=== PATIENT | female | born 1985 | race Caucasian/White ===

== ENCOUNTER 2016-10-10 11:09 | Emergency (ER) | payer MEDICAID ==
[2016-10-10 11:13] VITALS: BP 103/69; PULSE 76; RESP 16; TEMP 98.1; O2SAT 99
--- NOTE | 2016-10-10 11:57 | C.PDOC ---
History Of Present Illness 31 yr old female presents to the ER with complaints of left lower back pain after lifting a heavy box at work 2 days ago. Patient states she tried ibuprofen 600mg yesterday with moderate relief and again today at 430 am with no relief. Patient denies nausea, vomiting, abdominal pain, diarrhea, dysuria, incontinence, hematuria, weakness or numbness.denies tingling. Time Seen by Provider: 10/10/16 11:28 Chief Complaint (Nursing): Back Pain History Per: Patient History/Exam Limitations: no limitations Onset/Duration Of Symptoms: Days (2) Current Symptoms Are (Timing): Still Present Past Medical History Reviewed: Historical Data, Nursing Documentation, Vital Signs Vital Signs: Last Vital Signs Temp 98.1 F 10/10/16 11:12 Pulse 76 10/10/16 11:12 Resp 16 10/10/16 11:12 BP 103/69 10/10/16 11:12 Pulse Ox 99 10/10/16 12:13 - Medical History PMH: Anemia, Asthma Surgical History: Cholecystectomy Family History: States: No Known Family Hx - Social History Hx Tobacco Use: Yes Hx Alcohol Use: No Hx Substance Use: No - Immunization History Hx Tetanus Toxoid Vaccination: No Hx Influenza Vaccination: No Hx Pneumococcal Vaccination: No Review Of Systems Except As Marked, All Systems Reviewed And Found Negative. Gastrointestinal: Negative for: Nausea, Vomiting, Abdominal Pain, Diarrhea Genitourinary: Negative for: Dysuria, Incontinence, Hematuria Musculoskeletal: Positive for: Back Pain (Left lower lumbar ) Neurological: Negative for: Weakness, Numbness Physical Exam - Physical Exam Appears: Well, Non-toxic, No Acute Distress Skin: Warm, Dry, No Rash Head: Atraumatic, Normacephalic Oral Mucosa: Moist Neck: Normal, Normal ROM, No Midline Cervical Tenderness, Supple Chest: Symmetrical, No Tenderness Cardiovascular: Rhythm Regular, No Murmur Respiratory: Normal Breath Sounds, No Rales, No Rhonchi, No Stridor, No Wheezing Back: Normal Inspection, No CVA Tenderness, Other (Reproducible focal left lumbar tenderness) Extremity: Normal ROM, No Swelling Neurological/Psych: Oriented x3, Normal Speech ED Course And Treatment O2 Sat by Pulse Oximetry: 99 Progress Note: Patient is tested negative for POC. Treated with Tramadol for the pain. Medical Decision Making Medical Decision Making: PLAN: * POC Urine * Toradol IM Disposition Counseled Patient/Family Regarding: Diagnosis, Need For Followup, Rx Given - Disposition Referrals: Shawn Blackman MD [Medical Doctor] - Disposition: HOME/ ROUTINE Disposition Time: 12:05 Condition: IMPROVED Additional Instructions: Take 2 tablets of Aleve every 12 hours, with food. Take muscle relaxant up to three times a day- but only when not working, driving or operating machinery. Try hot or cold packs to painful area. Follow up with your PMD in a few days. Return to ER for any worsening symptoms Check with pharmacist before filling prescription for Lidoderm patches- do not use if pharmacist says you will be allergic to the adhesive. 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 - Scribe Statement The provider has reviewed the documentation as recorded by the Scribe Liv Lee All medical record entries made by the Jarvisibhadley were at my direction and personally dictated by me. I have reviewed the chart and agree that the record accurately reflects my personal performance of the history, physical exam, medical decision making, and the department course for this patient. I have also personally directed, reviewed, and agree with the discharge instructions and disposition.
== END 2016-10-10 12:22 | disposition home or self-care (01) ==
LOC: C.ER 11:09
DX: S39.012A Strain of muscle, fascia and tendon of lower back, initial encounter (principal); X50.0XXA Overexertion from strenuous movement or load, initial encounter
CPT/HCPCS: 96372; 99283; J1885

== ENCOUNTER 2017-02-28 16:30 | Emergency (ER) | payer MEDICAID ==
[2017-02-28 16:37] VITALS: BP 125/84; PULSE 87; RESP 18; TEMP 98.4; O2SAT 98
--- NOTE | 2017-02-28 17:03 | C.PDOC ---
History Of Present Illness 31-year-old female, PMhx includes Asthma (ex-smoker), presents to the emergency department with complaints of a cough, subjective fever, and chest congestion x1 week. Patient denies an asthma exacerbation. She notes no relief with over the counter medications. Denies nausea/vomiting, abdominal pain, or any other associated symptoms. No other complaints at this time. Time Seen by Provider: 02/28/17 16:39 Chief Complaint (Nursing): Cough, Cold, Congestion History Per: Patient History/Exam Limitations: no limitations Onset/Duration Of Symptoms: Days Current Symptoms Are (Timing): Still Present Past Medical History Reviewed: Historical Data, Nursing Documentation, Vital Signs Vital Signs: Last Vital Signs Temp 98.4 F 02/28/17 16:32 Pulse 87 02/28/17 16:32 Resp 18 02/28/17 16:32 BP 125/84 02/28/17 16:32 Pulse Ox 98 02/28/17 17:11 - Medical History PMH: Anemia, Asthma Surgical History: Cholecystectomy Family History: States: No Known Family Hx - Social History Hx Tobacco Use: Yes Hx Alcohol Use: No Hx Substance Use: No - Immunization History Hx Tetanus Toxoid Vaccination: No Hx Influenza Vaccination: No Hx Pneumococcal Vaccination: No Review Of Systems Except As Marked, All Systems Reviewed And Found Negative. Constitutional: Positive for: Fever ENT: Positive for: Nose Congestion Cardiovascular: Negative for: Chest Pain, Palpitations Respiratory: Positive for: Cough. Negative for: Shortness of Breath Gastrointestinal: Negative for: Vomiting Musculoskeletal: Negative for: Back Pain Neurological: Negative for: Weakness, Numbness, Headache, Dizziness Physical Exam - Physical Exam Appears: Non-toxic, No Acute Distress Skin: Warm, Dry, No Rash Head: Atraumatic, Normacephalic Eye(s): bilateral: Normal Inspection, PERRL Nose: Normal Oral Mucosa: Moist Lips: Normal Appearing Neck: Normal ROM Chest: Symmetrical Cardiovascular: Rhythm Regular, No Murmur Respiratory: Normal Breath Sounds, No Accessory Muscle Use Gastrointestinal/Abdominal: Soft, No Tenderness Extremity: Normal ROM Neurological/Psych: Oriented x3, Normal Speech ED Course And Treatment ECG: Interpreted By Me ECG Rhythm: Sinus Rhythm ECG Interpretation: Normal Rate From EC O2 Sat by Pulse Oximetry: 98 Pulse Ox Interpretation: Normal Disposition Counseled Patient/Family Regarding: Studies Performed, Diagnosis, Need For Followup, Rx Given - Disposition Referrals: your,pmd [Other] Disposition: HOME/ ROUTINE Disposition Time: 16:59 Condition: GOOD Prescriptions: Azithromycin 1 tab PO DAILY #4 tab Benzonatate [Tessalon Perles] 200 mg PO TID PRN #15 sgl PRN Reason: Cough Instructions: Acute Bronchitis (ED) Forms: Owned it (Lao) - Clinical Impression Clinical Impression: Bronchitis - Scribe Statement The provider has reviewed the documentation as recorded by the Scribe (Jose Block) All medical record entries made by the Scribe were at my direction and personally dictated by me. I have reviewed the chart and agree that the record accurately reflects my personal performance of the history, physical exam, medical decision making, and the department course for this patient. I have also personally directed, reviewed, and agree with the discharge instructions and disposition.
--- NOTE | 2017-02-28 17:27 | RAD ---
HISTORY: cough COMPARISON: No prior. TECHNIQUE: Chest PA and lateral FINDINGS: LUNGS: Mild venous congestion. Prominent bibasilar breast shadows. PLEURA: No significant pleural effusion identified. No pneumothorax apparent. CARDIOVASCULAR: Normal. OSSEOUS STRUCTURES: No significant abnormalities. VISUALIZED UPPER ABDOMEN: Normal. OTHER FINDINGS: None. IMPRESSION: Mild venous congestion. Prominent bibasilar breast shadows.
== END 2017-02-28 17:15 | disposition home or self-care (01) ==
LOC: C.ER 16:30
DX: J40 Bronchitis, not specified as acute or chronic (principal)

== ENCOUNTER 2017-07-03 18:25 | Emergency (ER) | payer MEDICAID ==
[2017-07-03 19:02] VITALS: RESP 18; TEMP 98.1
--- NOTE | 2017-07-03 21:04 | CT ---
EXAM: CT Head Without Intravenous Contrast CLINICAL HISTORY: 32 years old, female; Pain; Headache; Headache not specified; Additional info: Headache, tingling to face TECHNIQUE: Axial computed tomography images of the head/brain without intravenous contrast. All CT scans at this facility use one or more dose reduction techniques, viz.: automated exposure control; ma/kV adjustment per patient size (including targeted exams where dose is matched to indication; i.e. head); or iterative reconstruction technique. Coronal and sagittal reformatted images were created and reviewed. COMPARISON: No relevant prior studies available. FINDINGS: Brain: No intracranial hemorrhage. No mass. No definite edema. Ventricles: No hydrocephalus. Bones/joints: No acute fracture. Soft tissues: Unremarkable. Sinuses: No acute sinusitis. Mastoid air cells: No mastoid effusion. Orbits: Unremarkable as visualized. IMPRESSION: 1. No definite acute intracranial abnormality.
--- NOTE | 2017-07-03 21:11 | C.PDOC ---
History Of Present Illness 32 y/o female presents to the ER complaining of tingling in the left arm and left leg which has been present for the past 3 months. Patient also states that she was seen by her PMD who ordered a Head CT. The patient did not have insurance so she was not able to have the CT. She reports that the symptoms subsided but now she is complaining of pressure to the back of her head which has been present for the past 2 weeks. She states that she took over the counter medications which provided no relief. She states that she had tingling on the face which was worse on the left side. She denies having loss of speech, weakness and numbness of the extremities, and decreased vision. Time Seen by Provider: 07/03/17 19:32 Chief Complaint (Nursing): Upper Extremity Problem/Injury History Per: Patient History/Exam Limitations: no limitations Onset/Duration Of Symptoms: Days Current Symptoms Are (Timing): Still Present Severity: Moderate Past Medical History Reviewed: Historical Data, Nursing Documentation, Vital Signs Vital Signs: Last Vital Signs Temp 98.1 F 07/03/17 22:15 Pulse 79 07/03/17 22:15 Resp 18 07/03/17 22:15 BP 107/79 07/03/17 22:15 Pulse Ox 98 07/03/17 22:15 - Medical History PMH: Anemia, Asthma Surgical History: Cholecystectomy Family History: States: No Known Family Hx - Social History Hx Tobacco Use: Yes Hx Alcohol Use: No Hx Substance Use: No - Immunization History Hx Tetanus Toxoid Vaccination: No Hx Influenza Vaccination: No Hx Pneumococcal Vaccination: No Review Of Systems Neurological: Positive for: Other (tingling sensation on left arm and left leg) . Negative for: Weakness, Numbness Physical Exam - Physical Exam Appears: Non-toxic, No Acute Distress Skin: Normal Color, Warm Head: Atraumatic, Normacephalic Eye(s): bilateral: Normal Inspection, PERRL, EOMI Nose: Normal Oral Mucosa: Moist Throat: Normal Neck: Normal ROM, No Midline Cervical Tenderness, No Paracervical Tenderness, Supple Extremity: Normal ROM Extremity: Bilateral: Atraumatic, Normal Color And Temperature Neurological/Psych: Oriented x3, Normal Speech, Normal Cognition, Normal Cranial Nerves, Normal Motor, Normal Sensation Gait: Steady ED Course And Treatment O2 Sat by Pulse Oximetry: 100 (RA) Pulse Ox Interpretation: Normal - CT Scan/US Head CT Other Rad Studies (CT/US): Read By Radiologist, Radiology Report Reviewed CT/US Interpretation: No acute findings- see official report in [facility] Progress Note: Pt in no acute distress and remained with no neuro deficits. head Ct results d/w pt who is advised to take motrin for pain and to follw up in clinic for further evaluation. 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 - Scribe Statement The provider has reviewed the documentation as recorded by the Astrid Eckert Provider Attestation All medical record entries made by the Jarvisibe were at my direction and personally dictated by me. I have reviewed the chart and agree that the record accurately reflects my personal performance of the history, physical exam, medical decision making, and the department course for this patient. I have also personally directed, reviewed, and agree with the discharge instructions and disposition.
[2017-07-03 22:15] VITALS: BP 107/79; PULSE 79
[2017-07-04 02:37] VITALS: O2SAT 100
== END 2017-07-03 22:16 | disposition home or self-care (01) ==
LOC: C.ER 18:25
DX: R51 Headache (principal); Z72.0 Tobacco use

== ENCOUNTER 2017-07-09 09:53 | Emergency (ER) | payer MEDICAID ==
[2017-07-09 10:04] VITALS: BP 123/74; PULSE 88; RESP 20; TEMP 98.2; O2SAT 100
--- NOTE | 2017-07-09 11:30 | C.PDOC ---
History Of Present Illness MYALGIA, SUBJ FEVER COUGH X 4 DAYS. +ASTHMA EXAC BUT IMPROVES W MDI. NO OTHER ASSOC SX EXAM NARD HEENT NEG LUNGS CTA B/L NO W/R/R REMAINDE RNEG MDM PT ADVISED OUT OF [place] WINDOW FOR TAMIFLU. PT REQUESTING RX ANYWAY. PREDNISONE, SUPPORTIVE CARE Time Seen by Provider: 07/09/17 11:14 Chief Complaint (Nursing): Flu-like Symptoms History Per: Patient History/Exam Limitations: no limitations Onset/Duration Of Symptoms: Days (4) Current Symptoms Are (Timing): Still Present Past Medical History Reviewed: Historical Data, Nursing Documentation, Vital Signs Vital Signs: Last Vital Signs Temp 98.2 F 07/09/17 10:03 Pulse 88 07/09/17 10:03 Resp 20 07/09/17 10:03 BP 123/74 07/09/17 10:03 Pulse Ox 100 07/09/17 11:30 - Medical History PMH: Anemia, Asthma Surgical History: Cholecystectomy Family History: States: No Known Family Hx - Social History Hx Tobacco Use: Yes Hx Alcohol Use: No Hx Substance Use: No - Immunization History Hx Tetanus Toxoid Vaccination: No Hx Influenza Vaccination: No Hx Pneumococcal Vaccination: No Review Of Systems Except As Marked, All Systems Reviewed And Found Negative. Constitutional: Positive for: Fever (subjective), Other ((+) myalgia) ENT: Negative for: Throat Pain Respiratory: Positive for: Cough. Negative for: Shortness of Breath Gastrointestinal: Negative for: Vomiting Neurological: Negative for: Headache Physical Exam - Physical Exam Appears: Non-toxic, No Acute Distress, Other (NARD) Skin: Warm, Dry, No Rash Eye(s): bilateral: Normal Inspection, PERRL, EOMI Ear(s): Bilateral: Normal Oral Mucosa: Moist Lips: Normal Appearing Throat: Normal, No Erythema, No Exudate, No Drooling Neck: Normal, Normal ROM, Supple Respiratory: Normal Breath Sounds, No Rales, No Rhonchi, No Stridor, No Wheezing Extremity: Normal ROM, No Swelling Neurological/Psych: Oriented x3, Normal Speech Gait: Steady ED Course And Treatment O2 Sat by Pulse Oximetry: 100 (RA) Pulse Ox Interpretation: Normal Medical Decision Making Medical Decision Making: NOTE: PT ADVISED OUT OF [place] WINDOW FOR TAMIFLU. PT REQUESTING RX ANYWAY. PREDNISONE, SUPPORTIVE CARE Disposition Counseled Patient/Family Regarding: Diagnosis, Need For Followup, Rx Given - Disposition Referrals: YOUR,PMD [Other] Disposition: HOME/ ROUTINE Disposition Time: 11:28 Condition: IMPROVED Prescriptions: Ibuprofen [Motrin] 600 mg PO Q6 #30 tab Oseltamivir [Tamiflu] 75 mg PO BID #10 cap predniSONE [Prednisone] 60 mg PO DAILY #15 tab Instructions: Influenza (ED) Forms: [facility] (Bulgarian), Work Excuse - Clinical Impression Clinical Impression: Influenza-like illness - Scribe Statement The provider has reviewed the documentation as recorded by the Astrid Lee Provider Attestation: All medical record entries made by the Astrid were at my direction and personally dictated by me. I have reviewed the chart and agree that the record accurately reflects my personal performance of the history, physical exam, medical decision making, and the department course for this patient. I have also personally directed, reviewed, and agree with the discharge instructions and disposition.
== END 2017-07-09 11:37 | disposition home or self-care (01) ==
LOC: C.ER 09:53
DX: J11.1 Influenza due to unidentified influenza virus with other respiratory manifestations (principal); F17.210 Nicotine dependence, cigarettes, uncomplicated

== ENCOUNTER 2018-05-20 19:12 | Emergency (ER) | payer MEDICAID ==
[2018-05-20 19:20] VITALS: TEMP 97.7; O2SAT 97
--- NOTE | 2018-05-20 19:34 | C.PDOC ---
History Of Present Illness 33 year old female presents to the ER with a complaint of a frontal headache for the past 3 weeks associated with slight nausea. She also reports having some lower back pain. Denies vomiting, fever, or dysuria. Patient has a Hx of similar symptoms 2 months ago. Chief Complaint (Nursing): Headache History Per: Patient History/Exam Limitations: no limitations Onset/Duration Of Symptoms: Days (3 weeks) Current Symptoms Are (Timing): Still Present Preceeding Symptoms: None Associated Symptoms: Nausea, Other (Lower back pain). denies: Photophobia, Blurred Vision, Vomiting, Extremity Weakness Recent travel outside of the [place]: No Past Medical History Reviewed: Historical Data, Nursing Documentation, Vital Signs Vital Signs: Last Vital Signs Temp 97.7 F 05/20/18 19:15 Pulse 78 05/20/18 19:15 Resp 16 05/20/18 19:15 BP 123/77 05/20/18 19:15 Pulse Ox 97 05/20/18 19:15 - Medical History PMH: Anemia, Asthma Surgical History: Cholecystectomy Family History: States: Unknown Family Hx - Social History Hx Tobacco Use: Yes Hx Alcohol Use: No Hx Substance Use: No - Immunization History Hx Tetanus Toxoid Vaccination: No Hx Influenza Vaccination: No Hx Pneumococcal Vaccination: No Review Of Systems Constitutional: Negative for: Fever, Chills Cardiovascular: Negative for: Chest Pain, Palpitations Respiratory: Negative for: Cough, Shortness of Breath Gastrointestinal: Positive for: Nausea. Negative for: Vomiting Genitourinary: Negative for: Dysuria Musculoskeletal: Positive for: Back Pain (Lower) Neurological: Positive for: Headache. Negative for: Weakness, Numbness Physical Exam - Physical Exam Appears: Non-toxic, No Acute Distress Skin: Normal Color, Warm, Dry Head: Atraumatic, Normacephalic, Tenderness (Mild to bilateral frontal area) Eye(s): bilateral: Normal Inspection, PERRL, EOMI Nose: Normal, No Other (Congestion) Oral Mucosa: Moist Neck: Normal, No Midline Cervical Tenderness, No Paracervical Tenderness, S upple, No Other (Rigidity) Chest: Symmetrical, No Tenderness Cardiovascular: Rhythm Regular Respiratory: Normal Breath Sounds, No Rales, No Rhonchi, No Wheezing Gastrointestinal/Abdominal: Soft, No Tenderness Back: No CVA Tenderness, No Vertebral Tenderness, No Paraspinal Tenderness Neurological/Psych: Oriented x3, Normal Speech ED Course And Treatment - Laboratory Results Result Diagrams: 05/20/18 19:55 05/20/18 19:55 O2 Sat by Pulse Oximetry: 97 (Room air) Pulse Ox Interpretation: Normal Progress Note: Head CT, Blood work, and urinalysis ordered. Flexeril and toradol administered. Disposition Counseled Patient/Family Regarding: Diagnosis - Disposition Referrals: [facility] [Outside] Disposition: HOME/ ROUTINE Disposition Time: 21:21 Condition: STABLE Prescriptions: Cyclobenzaprine [Cyclobenzaprine HCl] 10 mg PO TIDPC #10 tab Naproxen [Naprosyn Tab] 375 mg PO Q6 #14 tab Instructions: Low Back Pain in Adults, Headache, Adult Forms: [facility] (Estonian) - POA Present On Arrival: None - Clinical Impression Clinical Impression: Headache, Back pain - Scribe Statement The provider has reviewed the documentation as recorded by the Scribe Oliver Tabor All medical record entries made by the Scribe were at my direction and personally dictated by me. I have reviewed the chart and agree that the record accurately reflects my personal performance of the history, physical exam, medical decision making, and the department course for this patient. I have also personally directed, reviewed, and agree with the discharge instructions and disposition.
[2018-05-20 19:59] LABS: BASO # 0.1 K/uL (0.0-0.2); BASO % 0.6 % (0.0-2.0); EOS # 0.2 K/uL (0.0-0.7); EOS % 2.5 % (0.0-4.0); HEMOGLOBIN 10.7 g/dL (11.0-16.0); LYMPH # 3.1 K/uL (1.0-4.3); LYMPH % 35.3 % (20.0-40.0); MEAN CORPUSCULAR HEMOGLOBIN 24.2 pg (27.0-31.0); MEAN CORPUSCULAR HGB CONC 31.4 g/dL (33.0-37.0); MEAN PLATELET VOLUME 9.6 fL (7.2-11.7); MONO # 0.6 K/uL (0.0-0.8); MONO % 6.6 % (0.0-10.0); NEUT # 4.8 K/uL (1.8-7.0); RBC 4.41 Mil/uL (3.80-5.20); RED CELL DISTRIBUTION WIDTH 15.4 % (11.5-14.5); WHITE BLOOD COUNT 8.8 K/uL (4.8-10.8)
[2018-05-20 20:11] LABS: BLOOD UREA NITROGEN 17 mg/dL (7-17); CALCIUM 9.1 mg/dl (8.6-10.4); GFR NON-AFRICAN AMERICAN > 60
[2018-05-20 20:16] LABS: ALB/GLOB RATIO 1.1 (1.0-2.1); ALBUMIN 4.2 g/dL (3.5-5.0); ALT/SGPT 21 U/L (9-52); AST/SGOT 44 U/L (14-36)
[2018-05-20 20:56] LABS: HCG,QUALITATIVE URINE NEGATIVE (NEGATIVE); SQUAMOUS EPITHIAL 5 /hpf (0-5); URINE BACTERIA OCC (<OCC); URINE BILIRUBIN NEGATIVE (NEGATIVE); URINE BLOOD 2+ (NEGATIVE); URINE CLARITY Clear (Clear); URINE COLOR Yellow (YELLOW); URINE GLUCOSE (UA) NORMAL (Normal); URINE LEUKOCYTE ESTERASE TRACE Leu/uL (Negative); URINE PROTEIN NEGATIVE (NEGATIVE); URINE UROBILINOGEN NORMAL mg/dL (0.2-1.0)
[2018-05-20 21:59] VITALS: BP 124/78; PULSE 88; RESP 20
--- NOTE | 2018-05-21 07:45 | CT ---
Date of service: 05/20/2018 PROCEDURE: CT HEAD WITHOUT CONTRAST. HISTORY: Headache COMPARISON: Comparison is made with 07/03/2017 TECHNIQUE: Axial computed tomography images were obtained through the head/brain without intravenous contrast. Radiation dose: Total exam DLP = 995.9 mGy-cm. This CT exam was performed using one or more of the following dose reduction techniques: Automated exposure control, adjustment of the mA and/or kV according to patient size, and/or use of iterative reconstruction technique. FINDINGS: HEMORRHAGE: No intracranial hemorrhage. BRAIN: No mass effect or edema. No atrophy or chronic microvascular ischemic changes. VENTRICLES: Unremarkable. No hydrocephalus. CALVARIUM: Unremarkable. PARANASAL SINUSES: Unremarkable as visualized. No significant inflammatory changes. MASTOID AIR CELLS: Unremarkable as visualized. No inflammatory changes. OTHER FINDINGS: None. IMPRESSION: No evidence of acute intracranial hemorrhage intracranial collection mass effect or midline shift. Preliminary report was submitted by [facility] Radiology contains concordant findings.
== END 2018-05-20 21:45 | disposition home or self-care (01) ==
LOC: C.ER 19:12
DX: R51 Headache (principal); M54.9 Dorsalgia, unspecified
CPT/HCPCS: 70450; 80053; 81001; 84703; 85025; 96374; 99285; J1885

== ENCOUNTER 2018-10-09 20:27 | Emergency (ER) | payer MEDICAID | END 2018-10-09 21:24 | disposition home or self-care (01) | LOC: C.ER 20:27 | DX: L25.9 Unspecified contact dermatitis, unspecified cause (principal) ==